=== PATIENT | male | born 1985 | race Caucasian/White ===

== ENCOUNTER 2017-11-05 07:07 | Emergency (ER) | payer BC, OTHER ==
--- NOTE | 2017-11-05 07:49 | EDM.PDOC ---
ED HPI GENERAL MEDICAL PROBLEM - General Chief Complaint: ENT Problem Stated Complaint: LEFT EAR PAIN Time Seen by Provider: 11/05/17 07:30 Source of Information: Reports: Patient History Limitations: Reports: No Limitations - History of Present Illness INITIAL COMMENTS - FREE TEXT/NARRATIVE: The patient states that he developed a left earache around 03:00 this morning. He also mentions that he developed a sore throat last night. He states that he experienced a cold, including cough, rhinorrhea, and a fever up to 105, that he got over about 5 or 6 days ago. He states that he had been seen at a walk-in clinic in [place] this past Thursday or Thursday, 11/02/2017 or 11/03/2017. He states that no tests were done, but that he was diagnosed with "allergies". He was prescribed oral prednisone and a cough medicine that contained codeine. The patient's PCP is Jaye Daily. Left Ear Pain Score (Numeric/FACES): 8 - Related Data Allergies Allergy/AdvReac Type Severity Reaction Status Date / Time No Known Allergies Allergy Verified 11/05/17 07:23 Home Meds: Home Meds Montelukast [Singulair] 10 mg PO DAILY PRN 11/05/17 [History] Past Medical History HEENT History: Reports: Allergic Rhinitis - Past Surgical History HEENT Surgical History: Reports: Naso-Sinus Surgery (Rhinoplasty), Oral Surgery (Purvis teeth extraction) Social & Family History - Tobacco Use Smoking Status *Q: Never Smoker Second Hand Smoke Exposure: No - Caffeine Use Caffeine Use: Reports: Coffee - Alcohol Use Alcohol Use History: Yes Alcohol Use Frequency: Rarely - Recreational Drug Use Recreational Drug Use: No - Living Situation & Occupation Living situation: Reports: , with Spouse, with Family (2 daughters) Occupation: Employed ([employer]) ED ROS ENT - Review of Systems Review Of Systems: ROS reveals no pertinent complaints other than HPI. ED EXAM, ENT - Physical Exam Exam: See Below Exam Limited By: No Limitations General Appearance: Alert, WD/WN, No Apparent Distress Eye Exam: Bilateral Eye: Normal Inspection Ears: Normal External Exam, Other (Right external auditory canal and tympanic membrane appeared to be normal. Left external auditory canal is normal, however , there is severe erythema surrounding the left tympanic membrane. Clear fluid behind the left TM.) Nose: Normal Inspection, Other (Bilateral nasal mucosa edema) Mouth/Throat: Normal Inspection, Normal Gums, Normal Lips, Normal Oropharynx, Normal Teeth. No: Pharyngeal Erythema Head: Atraumatic, Normocephalic Neck: Normal Inspection, Supple, Non-Tender, Full Range of Motion. No: Lymphadenopathy (L), Lymphadenopathy (R) Course - Vital Signs Last Recorded V/S: Last Vital Signs Temp 36.6 C 11/05/17 07:21 Pulse 88 11/05/17 07:21 Resp 16 11/05/17 07:21 BP 142/92 H 11/05/17 07:21 Pulse Ox 98 11/05/17 07:21 - Re-Assessments/Exams Free Text/Narrative Re-Assessment/Exam: 11/05/17 07:44 The patient presents with left ear pain since 03:00 this morning, along with a sore throat that developed last night. He states that he just got over a cold, that included a cough, rhinorrhea, and fever, 5 or 6 days ago. On examination, the patient has lifted erythema about his left tympanic membrane, but I see no purulence behind the tympanic membrane. This appears to be a bad case of serous otitis media. I'm recommending [id number] oxymetazoline nasal spray, along with preservative-free saline nasal spray. I explained that while I see no infection at this time, an infection could develop, therefore if his symptoms don't improve over the next few days, he should be reevaluated. Departure - Departure Time of Disposition: 07:45 Disposition: Home, Self-Care 01 Condition: Good Clinical Impression: Acute serous otitis media, left ear - Discharge Information Referrals: Jaye Daily MD [Primary Care Provider] - Additional Instructions: You were seen in the emergency room for a left earache. On examination, you have left serous otitis media, meaning, fluid in the middle ear, that does not appear to be infected. Purchase [id number] oxymetazoline nasal spray in a "pump mist" bottle. [place] one spray up your left nostril, wait 5 minutes, then spray a second spray up your left nostril. Repeat every 12 hours, as needed. You may use this for UP TO 5 days, no longer. Also purchase [id number] Simply Saline nasal spray in a pressurized can. [place] this up your left nostril many times per day. Take [id number] Tylenol or ibuprofen as needed for discomfort. While there does not appear to be an infection at this time, an infection could develop, therefore if your symptoms have not improved within a few days, you should be reevaluated. If any other problems, please do not hesitate to return to the ER.
== END 2017-11-05 07:55 | disposition home or self-care (01) ==
LOC: JD.ED 07:07
DX: H65.02 Acute serous otitis media, left ear (principal)
CPT/HCPCS: 99282